=== PATIENT | female | born 1940 | race American Indian/Alaskan Native ===

== ENCOUNTER 2016-06-08 11:45 | Outpatient (CLI) | payer MEDICARE ==
--- NOTE | 2016-06-08 12:48 | Mammography Report ---
Bilateral mammogram: Compared to 06/05/15. CAD study utilized. Findings: Predominance of adipose tissue bilaterally. Benign scattered calcifications bilaterally. Benign axillary nodes. Impression: Benign findings. Annual followup recommended. BI-RADS CATEGORY: 2 = Benign ACR BI-RADS MAMMOGRAPHIC CODES: 0 = Needs additional imaging evaluation; 1 = Negative; 2 = Benign; 3 = Probably benign; 4 = Suspicious; 5 = Malignant; 6 = Known biopsy-proven malignancy COMMENT: 1. Dense breast tissue, i.e., adenosis, fibrocystic changes, etc., may obscure an underlying neoplasm. 2. Approximately 10% of cancers are not detected with mammography. 3. A negative mammography report should not delay biopsy if a clinically suspicious mass is present. COMMENT: Patient follow-up letters are generated in [facility].
== END 2016-06-08 11:46 | disposition home or self-care (01) ==
LOC: MAMMO 11:45
PROVIDERS: ATTEND Internal Medicine
DX: Z12.31 Encounter for screening mammogram for malignant neoplasm of breast (principal)
CPT/HCPCS: 77067; G0202

== ENCOUNTER 2017-05-14 12:02 | Outpatient (CLI) | payer MEDICARE ==
--- NOTE | 2017-05-14 14:07 | Cat Scan Report ---
CT CHEST WITH CONTRAST: HISTORY: Weight loss. COMPARISON: none. TECHNIQUE: Helical CT in 1.25mm intervals following IV contrast. Sagittal and coronal reformatted images. FINDINGS: Thyroid gland: Normal. Tracheobronchial tree: Normal. Esophagus: Normal. Heart: Normal. Pericardium: Normal. Mediastinum: Normal. Lung Omer: Normal. Pleural Spaces: Normal. Musculoskeletal: Mild thoracic spondylosis. No fracture or suspicious bony lesion. IMPRESSION: Unremarkable CT chest with contrast.
--- NOTE | 2017-05-14 14:09 | Cat Scan Report ---
CT ABDOMEN WITH CONTRAST: HISTORY: Weight loss. COMPARISON: 04/06/16. TECHNIQUE: Helical CT in 1.25mm intervals following IV contrast. Sagittal and coronal reconstructions. FINDINGS: Lung bases: Normal. Liver: Normal. Biliary system: Normal. Pancreas: Normal. Spleen: Normal. Kidneys: Normal. Adrenal glands: Normal. Aorta: Normal. Intestines: Mild fecal retention is again noted. No evidence for abnormal dilatation or focal bowel wall thickening. Appendix: Normal. Ascites: None. Adenopathy: None. Musculoskeletal: Mild lumbar spondylosis is noted. No fracture or suspicious bony lesion. IMPRESSION: Unremarkable CT scan of the abdomen and pelvis with contrast. Mild fecal retention. Lumbar spondylosis.
== END 2017-05-14 12:03 | disposition home or self-care (01) ==
LOC: CT 12:02
PROVIDERS: ATTEND Nurse Practitioner Family
DX: R63.4 Abnormal weight loss (principal); K59.00 Constipation, unspecified; M47.895 Other spondylosis, thoracolumbar region
CPT/HCPCS: 36415; 71260; 74160; 82565; 84520; Q9967

== ENCOUNTER 2017-06-09 12:33 | Outpatient (CLI) | payer MEDICARE ==
--- NOTE | 2017-06-09 15:33 | Mammography Report ---
BILATERAL MAMMOGRAM: FINDINGS: There are scattered fibroglandular densities (approximately 25%-50% glandular). No mass, distortion, suspicious calcification, or skin change is seen. No significant change when compared to prior exam in May 2015. CAD was utilized. IMPRESSION: Negative mammogram. There is no mammographic evidence of malignancy. RECOMMENDATION: Follow-up per ACS guidelines. BI-RADS CATEGORY: 1 = Negative ACR BI-RADS MAMMOGRAPHIC CODES: 0 = Needs additional imaging evaluation; 1 = Negative; 2 = Benign; 3 = Probably benign; 4 = Suspicious; 5 = Malignant; 6 = Known biopsy-proven malignancy COMMENT: 1. Dense breast tissue, i.e., adenosis, fibrocystic changes, etc., may obscure an underlying neoplasm. 2. Approximately 10% of cancers are not detected with mammography. 3. A negative mammography report should not delay biopsy if a clinically suspicious mass is present. COMMENT: Patient follow-up letters are generated in [employer].
== END 2017-06-09 12:34 | disposition home or self-care (01) ==
LOC: MAMMO 12:33
PROVIDERS: ATTEND Internal Medicine
DX: Z12.31 Encounter for screening mammogram for malignant neoplasm of breast (principal)
CPT/HCPCS: 77067

== ENCOUNTER 2018-06-17 10:11 | Outpatient (CLI) | payer MEDICARE ==
--- NOTE | 2018-06-17 13:19 | Mammography Report ---
BILATERAL MAMMOGRAM: FINDINGS: There are scattered fibroglandular densities (approximately 25%-50% glandular). No mass, distortion, suspicious calcification, or skin change is seen. No significant change compared to prior exams dating back to May 2016. CAD was utilized. IMPRESSION: Negative mammogram. There is no mammographic evidence of malignancy. RECOMMENDATION: Follow-up per ACS guidelines. BI-RADS CATEGORY: 1 = Negative ACR BI-RADS MAMMOGRAPHIC CODES: 0 = Needs additional imaging evaluation; 1 = Negative; 2 = Benign; 3 = Probably benign; 4 = Suspicious; 5 = Malignant; 6 = Known biopsy-proven malignancy COMMENT: 1. Dense breast tissue, i.e., adenosis, fibrocystic changes, etc., may obscure an underlying neoplasm. 2. Approximately 10% of cancers are not detected with mammography. 3. A negative mammography report should not delay biopsy if a clinically suspicious mass is present. COMMENT: Patient follow-up letters are generated in [employer].
== END 2018-06-17 10:12 | disposition home or self-care (01) ==
LOC: MAMMO 10:11
PROVIDERS: ATTEND Internal Medicine
DX: Z12.31 Encounter for screening mammogram for malignant neoplasm of breast (principal); I10 Essential (primary) hypertension; K21.9 Gastro-esophageal reflux disease without esophagitis; M19.90 Unspecified osteoarthritis, unspecified site
CPT/HCPCS: 77067

== ENCOUNTER 2019-01-16 23:44 | Emergency (ER) | payer MEDICARE ==
[2019-01-16 23:59] VITALS: BP 120/93
--- NOTE | 2019-01-17 01:46 | XRay Report ---
CERVICAL SPINE 3 VIEWS INDICATION / CLINICAL INFORMATION: neck pain. COMPARISON: None available. FINDINGS: VERTEBRAE: No fracture. No significant malalignment. DISC SPACES:Moderate discogenic degenerative disease C3-6. Mild discogenic degenerative disease C2-3 and C6-7. PREVERTEBRAL SOFT TISSUES:No significant abnormality. ADDITIONAL FINDINGS: Mild to moderate multilevel facet degenerative disease C2-7. IMPRESSION: 1. Discogenic and facet degenerative disease of cervical spine. Signer Name: Cory Tellez MD Signed: 01/17/2019 1:42 AM Workstation Name: [id number]
--- NOTE | 2019-01-17 02:30 | Emergency Department Report ---
ED Neck Pain/Injury HPI - General Chief Complaint: Extremity Injury, Upper Stated Complaint: LEFT SHOULDER AND NECK PAIN Time Seen by Provider: 01/17/19 01:12 Mode of arrival: Ambulatory Limitations: No Limitations - History of Present Illness MD Complaint: neck pain -: Gradual Place: home Radiation: left lateral, left shoulder Severity: moderate Quality: sharp, aching Consistency: constant Improves With: none Worsens With: movement of neck Context: other (was sleeping and woke up with pain to the neck, felt like she slept "position and is worse when she moves her neck around and feels stiffness to the left side of the neck) Associated Symptoms: denies: numbness, tingling, vertigo, difficulty walking, swollen glands, difficulty swallowing Treatments Prior to Arrival: none - Related Data Home Medications Medication Instructions Recorded Confirmed Last Taken Flecainide [Tambocor] 50 mg PO BID 12/16/14 04/06/16 04/06/16 Lisinopril [Zestril TAB] 40 mg PO QDAY 12/16/14 04/06/16 04/06/16 Dabigatran [Pradaxa] 150 mg PO BID 04/06/16 04/06/16 04/06/16 clonazePAM 0.5 mg PO BID 04/06/16 04/06/16 04/06/16 Previous Rx's Medication Instructions Recorded Last Taken Type Docusate Sodium [Colace] 100 mg PO BID PRN #20 capsule 04/06/16 Unknown Rx Ketorolac [Toradol] 10 mg PO Q6H PRN #10 tablet 01/17/19 Unknown Rx Allergies Allergy/AdvReac Type Severity Reaction Status Date / Time penicillin Allergy Hives Verified 12/16/14 05:55 ED Review of Systems ROS: Stated complaint: LEFT SHOULDER AND NECK PAIN Other details as noted in HPI Comment: All other systems reviewed and negative ED Past Medical Hx - Past Medical History Hx Hypertension: Yes (FOR 20+ YRS. ) Hx Arthritis: Yes Hx Headaches / Migraines: Yes Hx HIV: No Additional medical history: afib. thyroid. anxiety - Surgical History Additional Surgical History: HIATAL HERNIA. left middle toe, hammer toe surgery - Social History Smoking Status: Never Smoker - Medications Home Medications: Home Medications Medication Instructions Recorded Confirmed Last Taken Type Flecainide [Tambocor] 50 mg PO BID 08/07/0104/06/16 04/06/16 History Lisinopril [Zestril TAB] 40 mg PO QDAY 12/16/14 04/06/16 04/06/16 History Dabigatran [Pradaxa] 150 mg PO BID 04/06/16 04/06/16 04/06/16 History Docusate Sodium [Colace] 100 mg PO BID PRN #20 capsule 04/06/16 Unknown Rx clonazePAM 0.5 mg PO BID 04/06/16 04/06/16 04/06/16 History Ketorolac [Toradol] 10 mg PO Q6H PRN #10 tablet 01/17/19 Unknown Rx ED Physical Exam - General Limitations: No Limitations General appearance: alert, in no apparent distress - Head Head exam: Present: atraumatic, normocephalic - Eye Eye exam: Present: normal appearance - ENT ENT exam: Present: mucous membranes moist - Neck Neck exam: Present: normal inspection, tenderness (she hasn't the left trapezius region. There is some tenderness to the mid cervical spine.), full ROM. Absent: meningismus, lymphadenopathy, thyromegaly - Respiratory Respiratory exam: Present: normal lung sounds bilaterally. Absent: respiratory distress, wheezes, rales, rhonchi, accessory muscle use, decreased breath sounds, prolonged expiratory - Cardiovascular Cardiovascular Exam: Present: regular rate, normal rhythm. Absent: systolic murmur, diastolic murmur, rubs, gallop - GI/Abdominal GI/Abdominal exam: Present: soft, normal bowel sounds - Extremities Exam Extremities exam: Present: normal inspection - Back Exam Back exam: Present: normal inspection. Absent: CVA tenderness (R), CVA tenderness (L) - Neurological Exam Neurological exam: Present: alert, oriented X3, CN II-XII intact, normal gait. Absent: motor sensory deficit - Psychiatric Psychiatric exam: Present: normal affect, normal mood. Absent: flat affect, manic, homicidal ideation - Skin Skin exam: Present: warm, dry, intact, normal color. Absent: rash, erythema, urticaria, vesicles ED Course Vital Signs 01/16/19 23:57 Temperature 97.7 F Pulse Rate 77 Respiratory 18 Rate Blood Pressure 120/93 O2 Sat by Pulse 97 Oximetry Critical care attestation.: If time is entered above; I have spent that time in minutes in the direct care of this critically ill patient, excluding procedure time. ED Disposition Clinical Impression: Cervical arthritis, Trapezius muscle spasm Disposition: - TO HOME OR SELFCARE Is pt being admited?: No Does the pt Need Aspirin: No Condition: Stable Instructions: Cervical Spinal Stenosis (ED), Cervical Sprain (ED), Cervical Radiculopathy (ED), Muscle Spasm (ED) Prescriptions: Ketorolac [Toradol] 10 mg PO Q6H PRN #10 tablet PRN Reason: Pain Referrals: CHERYL OBREGON JR, MD [Primary Care Provider] - 3-5 Days
== END 2019-01-17 03:19 | disposition home or self-care (01) ==
LOC: ED 23:44
DX: M54.2 Cervicalgia (principal); I10 Essential (primary) hypertension; M19.90 Unspecified osteoarthritis, unspecified site; G43.909 Migraine, unspecified, not intractable, without status migrainosus; F41.9 Anxiety disorder, unspecified; I48.91 Unspecified atrial fibrillation; Z98.890 Other specified postprocedural states; Z88.0 Allergy status to penicillin; Z79.899 Other long term (current) drug therapy
CPT/HCPCS: 72040; 99283

== ENCOUNTER 2019-06-19 09:26 | Outpatient (CLI) | payer MEDICARE ==
--- NOTE | 2019-06-19 12:56 | Mammography Report ---
DIGITAL SCREENING MAMMOGRAM WITH CAD, 06/19/2019 INDICATION: Routine screening mammography. TECHNIQUE: Digital bilateral 2D mammography was obtained in the craniocaudal and mediolateral obliq ue projections. This examination was interpreted with the benefit of Computer-Aided Detection analysi s. COMPARISON: 06/17/2018 FINDINGS: Breast Density: The breasts are heterogeneously dense, which may obscure small masses. There is no evidence of dominant mass, suspicious calcifications or architectural distortion in eithe r breast. Bilateral benign calcifications, which are mostly vascular. IMPRESSION: No mammographic evidence of malignancy. Follow up recommendation: Routine yearly BI-RADS Category 2: Benign. A "normal" or negative report should not discourage follow up or biopsy of a clinically significant f inding. A written summary of these findings will be mailed to the patient. The patient will be entered into a mammography reporting system which will generate a reminder letter for the patient's next appointmen t at the appropriate interval. The [employer] recommends yearly mammograms starting at age 40 and continuing as l syed as a woman is in good health. Breast MRI is recommended for women with an approximate 20-25% or greater lifetime risk of breast cancer, including women with a strong family history of breast or ova nita cancer or who have been treated for Hodgkin's disease. Signer Name: Jose Rios MD Signed: 06/19/2019 12:52 PM Workstation Name: [id number]
== END 2019-06-19 09:27 | disposition home or self-care (01) ==
LOC: MAMMO 09:26
PROVIDERS: ATTEND Internal Medicine
DX: Z12.31 Encounter for screening mammogram for malignant neoplasm of breast (principal)
CPT/HCPCS: 77067

== ENCOUNTER 2021-11-12 15:45 | Outpatient (CLI) | payer MEDICARE, BC ==
--- NOTE | 2021-11-12 16:55 | XRay Report ---
LEFT RIB SERIES 3 VIEWS INDICATION: Left-sided chest wall pain. COMPARISON: No relevant prior imaging study available. FINDINGS: No acute pulmonary or pleural findings. No left rib fractures are identified. IMPRESSION: 1. No acute findings. THORACIC SPINE 3 VIEWS INDICATION: M62.830 SPASM OF THORACIC BACK MUSCLE COMPARISON: None. FINDINGS: No acute, displaced fracture is seen. Alignment is within normal limits. There is moderate diffuse discogenic degenerative change greatest at the lower thoracic spine. IMPRESSION: 1. No acute findings. 2. Degenerative changes, as above. LUMBAR SPINE 2 VIEWS INDICATION: Acute lumbar radiculopathy COMPARISON: None. FINDINGS: No acute, displaced fracture is seen. There is mild curvature of the lumbar spine with convex to to the right at L4-5. There is no listhesi s. There is moderate discogenic degenerative change at L2-3, L3-4, and L4-5. Mild discogenic degenerativ e changes noted at the lumbosacral junction. There is mild to moderate diffuse facet arthropathy. IMPRESSION: 1. No acute findings. 2. Degenerative changes, as above. Signer Name: Hua Simmons MD Signed: 11/12/2021 4:51 PM Workstation Name: [id number]
== END 2021-11-12 15:46 | disposition home or self-care (01) ==
LOC: XRAY 15:45
PROVIDERS: ATTEND Internal Medicine
DX: M47.26 Other spondylosis with radiculopathy, lumbar region (principal); M62.830 Muscle spasm of back; R07.81 Pleurodynia; M47.814 Spondylosis without myelopathy or radiculopathy, thoracic region
CPT/HCPCS: 72072; 72100; 72110

== ENCOUNTER 2021-11-25 13:11 | Outpatient (CLI) | payer MEDICARE ==
--- NOTE | 2021-11-25 15:52 | XRay Report ---
LUMBOSACRAL SPINE 3 VIEWS INDICATION: BACK PAIN. Patient fell and injured back. Back pain for one week COMPARISON: None. IMPRESSION: There is normal alignment on the lateral view. Straightening of the normal lumbar lordos is is present. There is mild levocurvature of the lumbar spine. Moderate to severe multilevel discog enic DJD and facet arthropathy are identified. No acute osseous or soft tissue abnormality. PELVIS ONE VIEW INDICATION: Pain, fall. COMPARISON: None. IMPRESSION: No evidence for pelvic fracture, diastasis or bone lesion. Mild degenerative changes are noted at the SI joints and bilateral hips. No significant DJD. Signer Name: Joey Poon Jr, MD Signed: 11/25/2021 3:48 PM Workstation Name: [id number]
== END 2021-11-25 13:12 | disposition home or self-care (01) ==
LOC: XRAY 13:11
PROVIDERS: ATTEND Internal Medicine
DX: M16.0 Bilateral primary osteoarthritis of hip (principal); M47.817 Spondylosis without myelopathy or radiculopathy, lumbosacral region; M47.898 Other spondylosis, sacral and sacrococcygeal region
CPT/HCPCS: 72100; 72170

== ENCOUNTER 2021-12-12 14:10 | Emergency (ER) | payer MEDICARE, BC ==
[2021-12-12 14:17] VITALS: BP 184/91
[2021-12-12 15:21] LABS: Hematocrit 44.9 % (30.3-42.9); Mean Corpuscular HGB Conc 33 % (30-34); Mean Corpuscular Volume 94 fl (79-97); Platelet Count 205 K/mm3 (140-440); Red Blood Count 4.76 M/mm3 (3.65-5.03); Red Cell Distribution Width 13.7 % (13.2-15.2)
[2021-12-12 15:24] LABS: Alanine Aminotransferase 16 units/L (7-56); Albumin 4.1 g/dL (3.9-5); BUN/Creatinine Ratio 18; Blood Urea Nitrogen 16 mg/dL (7-17); Calcium 9.9 mg/dL (8.4-10.2); Hemolysis Index 4
[2021-12-12 16:48] LABS: Basophils % (Manual) 0 % (0.0-1.8); Eosinophils % (Manual) 0 % (0.0-4.3); Platelet Estimate Consistent w Auto; RBC Morphology Normal; Total Cells Counted 100
== END 2021-12-12 16:36 | disposition left against medical advice (07) ==
LOC: ED 14:10
DX: R10.9 Unspecified abdominal pain (principal); Z53.21 Procedure and treatment not carried out due to patient leaving prior to being seen by health care provider
CPT/HCPCS: 36415; 80053; 85007; 85025